=== PATIENT | male | born 1950 | race Hispanic/Latino ===

== ENCOUNTER 2021-12-21 21:08 | Emergency (ER) | payer OTHER ==
[2021-12-21] MEDS ORDERED: MORPHINE 4 MG/1 ML INJ IV ONE (21:55)
[2021-12-21] MEDS ORDERED: ONDANSETRON 4 MG/2 ML INJ IV ONE (21:55)
[2021-12-21] MEDS ORDERED: SODIUM CHLORIDE 0.9% 1000 ML 1,000 ML IV ONE (21:55)
[2021-12-21 23:03] LABS: Basophils % (Auto) 0.3 % (0.0-1.8); Eosinophils % (Auto) 0.1 % (0.0-4.3); Hematocrit 47.4 % (35.5-45.6); Hemoglobin 16.5 gm/dl (11.8-15.2); Lymphocytes # (Auto) 1.5 K/mm3 (1.2-5.4); Lymphocytes % (Auto) 12.1 % (13.4-35.0); Mean Corpuscular HGB Conc 35 % (32-34); Mean Corpuscular Volume 81 fl (84-94); Monocytes % (Auto) 8.1 % (0.0-7.3); Platelet Count 202 K/mm3 (140-440); Red Blood Count 5.83 M/mm3 (3.65-5.03); Red Cell Distribution Width 13.7 % (13.2-15.2)
[2021-12-21 23:17] LABS: BUN/Creatinine Ratio 15; Blood Urea Nitrogen 12 mg/dL (9-20); Calcium 11.1 mg/dL (8.4-10.2); Hemolysis Index 85
--- NOTE | 2021-12-22 00:24 | Cat Scan Report ---
CT ABDOMEN AND PELVIS WITH CONTRAST INDICATION / CLINICAL INFORMATION: Abdominal pain with nausea. TECHNIQUE: Axial CT images were obtained through the abdomen and pelvis after 100 cc of Omnipaque [address] scans at this location are performed using CT dose reduction for ALARA by means of automated exposure control. COMPARISON: None available. FINDINGS: LOWER CHEST: Bilateral pleural effusions with adjacent atelectasis. There is also scarring versus ate lectasis in the bilateral lung bases. AORTA / ARTERIES: Mild atherosclerotic calcification without acute abnormality. IVC / VEINS: No significant abnormality. LYMPH NODES: No significant adenopathy. COLON: There is scattered diverticulosis throughout the colon. Along the mid descending colon there i s peridiverticular inflammation. APPENDIX: No significant abnormality. STOMACH / SMALL BOWEL: There is a focal gas filled diverticula involving the second portion of the du odenum adjacent to the pancreatic uncinate process. The stomach and small bowel are otherwise unremar kable. PERITONEUM: No free fluid. No free air. No fluid collection. LIVER: Decreased attenuation of the liver suggesting hepatic steatosis. Involving the anterior inferi or segment of the right hepatic lobe there is a 2.1 cm hypoattenuating lesion. GALLBLADDER: Cholecystectomy. BILE DUCTS: No significant abnormality. PANCREAS: No significant abnormality. SPLEEN: No significant abnormality. ADRENALS: No significant abnormality. RIGHT KIDNEY / URETER: Right renal cyst. There is a 1.0 cm stone in the inferior collecting system. N o hydronephrosis. There is a 0.7 cm stone at the right ureterovesicular junction. There is mild hydro ureter. There is perinephric fat stranding. LEFT KIDNEY / URETER: Multiple renal cysts. Within the superior pole there is a 0.6 cm nonobstructing stone. URINARY BLADDER: No significant abnormality. REPRODUCTIVE ORGANS: No significant abnormality. SKELETAL SYSTEM: Scattered degeneration. ADDITIONAL FINDINGS: None. IMPRESSION: 1. Acute uncomplicated diverticulitis of the descending colon. 2. There is a 0.7 cm stone at the right ureterovesicular junction which causes mild obstructive nephr opathy. There is also a 1.0 cm stone within the right kidney 3. Bilateral renal cysts. Nonobstructing left renal stone. 4. Hepatic steatosis. 5. Indeterminant hypoattenuating lesion involving the anterior inferior segment of the right hepatic lobe. This may represent hemangioma versus complicated cyst. Signer Name: Biju Ramirez DO Signed: 12/22/2021 12:19 AM Workstation Name: [id number]
[2021-12-22] MEDS ORDERED: MORPHINE 4 MG/1 ML INJ IV ONE (00:42)
--- NOTE | 2021-12-22 00:45 | Emergency Department Report ---
ED Abdominal Pain HPI - General Chief Complaint: Abdominal Pain Stated Complaint: ABDOMINAL PAIN Time Seen by Provider: 12/21/21 21:55 Source: EMS Mode of arrival: Stretcher Limitations: No Limitations - History of Present Illness Initial Comments: Nausea and abdominal pain, no vomiting/diarrhea pt is from [place] [facility] had abdominal painw ith nausea no vomitng no fever [place] tones -: Gradual, hour(s) Location: LLQ, L flank, R flank Migration to: no migration Severity scale (0 -10): 4 Quality: aching Consistency: constant Improves With: nothing Worsens With: nothing Associated Symptoms: nausea. denies: denies other symptoms, vomiting, diarrhea, fever, chills, constipation, dysuria, hematemesis - Related Data Previous Rx's Medication Instructions Recorded Last Taken Type Acetaminophen/Codeine [Tylenol 1 tab PO Q6H PRN #14 tab 12/22/21 Unknown Rx /Codeine # 3 tab] Amoxicillin/K Clav Tab [Augmentin 1 tab PO Q12HR #14 tab 12/22/21 Unknown Rx 875 mg] Ketorolac [Toradol] 10 mg PO Q6H PRN #10 12/22/21 Unknown Rx Ondansetron [Zofran Odt] 4 mg PO Q8HR #14 tab.rapdis 12/22/21 Unknown Rx Allergies Allergy/AdvReac Type Severity Reaction Status Date / Time No Known Allergies Allergy Verified 12/21/21 22:06 ED Review of Systems ROS: Stated complaint: ABDOMINAL PAIN Other details as noted in HPI Constitutional: denies: chills, fever Eyes: denies: eye pain, eye discharge, vision change ENT: denies: ear pain, throat pain Respiratory: denies: cough, shortness of breath, wheezing Cardiovascular: denies: chest pain, palpitations Endocrine: no symptoms reported Gastrointestinal: denies: abdominal pain, nausea, diarrhea Genitourinary: denies: urgency, dysuria Musculoskeletal: denies: back pain, joint swelling, arthralgia Skin: denies: rash, lesions Neurological: denies: headache, weakness, paresthesias Psychiatric: denies: anxiety, depression Hematological/Lymphatic: denies: easy bleeding, easy bruising ED Past Medical Hx - Past Medical History Previous Medical History?: Yes Hx Diabetes: Yes - Surgical History Past Surgical History?: Yes Hx Cholecystectomy: Yes - Social History Smoking Status: Unknown if ever smoked - Medications Home Medications: Home Medications Medication Instructions Recorded Confirmed Last Taken Type Acetaminophen/Codeine [Tylenol 1 tab PO Q6H PRN #14 tab 12/22/21 Unknown Rx /Codeine # 3 tab] Amoxicillin/K Clav Tab [Augmentin 1 tab PO Q12HR #14 tab 12/22/21 Unknown Rx 875 mg] Ketorolac [Toradol] 10 mg PO Q6H PRN #10 12/22/21 Unknown Rx Ondansetron [Zofran Odt] 4 mg PO Q8HR #14 tab.rapdis 12/22/21 Unknown Rx ED Physical Exam - General Limitations: No Limitations General appearance: alert, in no apparent distress - Head Head exam: Present: atraumatic, normocephalic - Eye Eye exam: Present: normal appearance - ENT ENT exam: Present: mucous membranes moist - Neck Neck exam: Present: normal inspection - Respiratory Respiratory exam: Present: normal lung sounds bilaterally. Absent: respiratory distress - Cardiovascular Cardiovascular Exam: Present: regular rate, normal rhythm. Absent: systolic murmur, diastolic murmur, rubs, gallop - GI/Abdominal GI/Abdominal exam: Present: soft, tenderness - Rectal Rectal exam: Present: deferred - Extremities Exam Extremities exam: Present: normal inspection - Back Exam Back exam: Present: normal inspection - Neurological Exam Neurological exam: Present: alert, oriented X3 - Psychiatric Psychiatric exam: Present: normal affect, normal mood - Skin Skin exam: Present: warm, dry, intact, normal color. Absent: rash ED Course Vital Signs 12/21/21 12/21/21 12/21/21 21:13 22:16 22:25 Temperature 97.9 F Pulse Rate 77 79 Respiratory 18 18 Rate Blood Pressure 156/98 169/101 O2 Sat by Pulse 96 95 Oximetry 12/21/21 12/21/21 12/21/21 22:26 22:30 22:46 Temperature Pulse Rate 82 87 Respiratory 18 16 24 Rate Blood Pressure 177/98 176/105 O2 Sat by Pulse 94 92 Oximetry 12/21/21 12/21/21 12/21/21 22:56 23:00 23:16 Temperature Pulse Rate 89 86 Respiratory 18 27 H 26 H Rate Blood Pressure 170/99 170/108 O2 Sat by Pulse 92 92 Oximetry 12/21/21 12/21/21 23:30 23:42 Temperature Pulse Rate 87 75 Respiratory 24 22 Rate Blood Pressure 159/104 162/97 O2 Sat by Pulse 93 94 Oximetry ED Medical Decision Making - Lab Data Result diagrams: 12/21/21 22:43 12/21/21 22:43 - Radiology Data Radiology results: report reviewed, image reviewed - Medical Decision Making work up showed slightly elevated wbc , CT scan showed renal stone pot is aware, diverticulitis noted without complication pt agreed to [facility] tomorrow morning he has a flight and start PO abx and he will see somebody for it in [place] Critical care attestation.: If time is entered above; I have spent that time in minutes in the direct care of this critically ill patient, excluding procedure time. ED Disposition Clinical Impression: Acute diverticulitis, Renal colic Disposition: 01 HOME / SELF CARE / HOMELESS Is pt being admited?: No Does the pt Need Aspirin: No Condition: Stable Instructions: Diverticulitis, [id number], Kidney Stones, Diverticulitis
[2021-12-22 01:23] VITALS: BP 150/96
== END 2021-12-22 01:10 | disposition home or self-care (01) ==
LOC: ED 21:08
DX: K57.92 Diverticulitis of intestine, part unspecified, without perforation or abscess without bleeding (principal); N23 Unspecified renal colic; E11.9 Type 2 diabetes mellitus without complications; Z90.49 Acquired absence of other specified parts of digestive tract
CPT/HCPCS: 36415; 74177; 80048; 82150; 83690; 85025; 86140; 96361; 96374; 96375; 96376; 99284; J2270; J2405; J7030; Q9967